=== PATIENT | male | born 1995 | race African-American/Black ===

== ENCOUNTER 2018-02-10 13:40 | Emergency (ER) | payer SELFPAY ==
[~2018-02-10] VITALS: Ht 182.9 cm; Wt 70.3 kg
[2018-02-10 13:40] VITALS: BP 113/70
== END 2018-02-10 15:02 | disposition home or self-care (01) ==
LOC: ER 13:47
DX: S61.411D Laceration without foreign body of right hand, subsequent encounter (principal); X58.XXXD Exposure to other specified factors, subsequent encounter
CPT/HCPCS: 99281; A4606; Z7610; Z7502